=== PATIENT | female | born 1985 | race Caucasian/White ===

== ENCOUNTER 2024-01-04 10:16 | Observation (INO) ==
[2024-01-04 12:37] LABS: ABS Basophils 0.1 10^3/uL (0.0-0.1); ABS Lymphocytes 1.3 10^3/uL (1.0-4.8); ABS Monocytes 0.4 10^3/uL (0.0-0.9); ABS Neutrophils 8.9 10^3/uL (1.5-7.6); ABS Nucleated RBC 0.01 10^3/ul; Eosinophil % 0.3 %; Hematocrit 36.8 % (35-45); Hemoglobin 12.1 g/dL (11.5-14.3); Lymphocyte % 11.9 %; Mean Corpuscular Hemoglobin 29.4 pg (27-33); Mean Corpuscular Hgb Conc 32.9 g/dL (31-36); Mean Corpuscular Volume 89.6 fL (80-97); Mean Platelet Volume 8.1 fL (7.5-11.2); Nucleated Red Blood Cells % 0.1 %/100WBC (0.0-0.8); Platelet Count 501 10^3/uL (150-450); Red Blood Count 4.11 10^6/uL (3.63-4.92); Red Cell Distribution Width 14.7 % (12-17); White Blood Count 10.7 10^3/uL (3.8-11.8)
[2024-01-04] MEDS: Lactated Ringers 1000 ml BAG 1,000 ML IV SCH ×2 (12:46→16:55)
[2024-01-04] MEDS: Ondansetron 4 mg VIAL 2 MG/ML 2 ml VIAL IV ONE (12:46)
[2024-01-04 13:13] LABS: HCG Pregnancy < 0.60 mIU/mL
[2024-01-04] MEDS: Hydrocortisone INJ 100 MG/2ML 2 ML VIAL IV ONE (13:14)
[2024-01-04 13:18] LABS: ALT 30 U/L (7-52); AST 22 U/L (13-39); Albumin 4.7 g/dL (3.2-5.2); Albumin/Globulin Ratio 1.7 (1-3); Alkaline Phosphatase 71 U/L (35-149); Anion Gap 13 mmol/L (2-16); Blood Urea Nitrogen 12 mg/dL (6-24); C Reactive Protein 11.82 mg/L (<8.01); CO2 Carbon Dioxide 29 mmol/L (22-32); Calcium 12.8 mg/dL (8.6-10.3); Chloride 98 mmol/L (101-111); Creatinine, Serum 0.96 mg/dL (0.51-0.95); Globulin 2.7 g/dL (2-4); Glucose 102 mg/dL (70-100); Lipase 49 U/L (11.0-82.0); Magnesium 1.6 mg/dL (1.9-2.7); Potassium 4.1 mmol/L (3.5-5.0); Sodium 140 mmol/L (135-145); Total Bilirubin 0.4 mg/dL (0.2-1.0); Total Protein 7.4 g/dL (6.4-8.9); eGFR CKD-EPI 76.7 (>60)
[2024-01-04 14:26] LABS: Urine Appearance Turbid; Urine Bilirubin Negative (Negative); Urine Blood Trace (Negative); Urine Color Light-Yellow; Urine Glucose Negative (Negative); Urine Ketones Negative (Negative); Urine Nitrite Negative (Negative); Urine Protein Negative (Negative); Urine Specific Gravity 1.008 (1.002-1.030); Urine Urobilinogen Negative (Negative)
[2024-01-04] MEDS: Enoxaparin 40 MG/0.4 ML SYR SUBCUT SCH (16:54)
[2024-01-04] MEDS ORDERED: Albuterol HFA INHALER 8 gm MDI INH PRN (17:19)
[2024-01-04] MEDS: Ondansetron 4 mg VIAL 2 MG/ML 2 ml VIAL IV PRN (18:50)
[2024-01-04] MEDS ORDERED: DULoxetine DR 30 mg CAP PO SCH (19:00)
[2024-01-04] MEDS: Hydrocortisone INJ 100 MG/2ML 2 ML VIAL IV SCH (19:41)
[2024-01-04 20:15] LABS: Calcium (PTH Intact) 12.8 mg/dL (8.6-10.3)
[2024-01-04] MEDS: DULoxetine DR 20 mg CAP PO SCH (20:24)
[2024-01-04] MEDS: DULoxetine DR 30 mg CAP PO SCH (20:24)
[2024-01-04 20:42] LABS: TSH Ultra Thyroid Stim Horm 3.11 mcIU/mL (0.34-5.60)
[2024-01-04] MEDS: Latanoprost 0.005% 2.5 ml BTL BOTH EYES SCH (22:49)
[2024-01-04] MEDS: BRINZOLAMID BOTH EYES SCH (22:49)
[2024-01-04] MEDS: BRIMONIDIN OPH BOTH EYES SCH (22:49)
[2024-01-05 01:19] LABS: Calcium 10.5 mg/dL (8.6-10.3); Creatinine, Serum 0.9 mg/dL (0.51-0.95); Magnesium 1.5 mg/dL (1.9-2.7); eGFR CKD-EPI 82.9 (>60)
[2024-01-05 06:32] LABS: ABS Lymphocytes 1.6 10^3/uL (1.0-4.8); ABS Monocytes 0.7 10^3/uL (0.0-0.9); ABS Neutrophils 7.4 10^3/uL (1.5-7.6); ABS Nucleated RBC 0.01 10^3/ul; Hemoglobin 10.5 g/dL (11.5-14.3); Lymphocyte % 16.4 %; Mean Corpuscular Hemoglobin 30.2 pg (27-33); Mean Corpuscular Hgb Conc 33.9 g/dL (31-36); Mean Corpuscular Volume 89.3 fL (80-97); Mean Platelet Volume 8.4 fL (7.5-11.2); Nucleated Red Blood Cells % 0.1 %/100WBC (0.0-0.8); Platelet Count 396 10^3/uL (150-450); Red Blood Count 3.47 10^6/uL (3.63-4.92); Red Cell Distribution Width 14.7 % (12-17); White Blood Count 9.7 10^3/uL (3.8-11.8)
[2024-01-05] MEDS: SPIRIVA Respimat (tiotropium) 2.5 mcg/inh Inhaler INH SCH (07:20)
[2024-01-05 07:58] LABS: Albumin 3.8 g/dL (3.2-5.2); Albumin/Globulin Ratio 1.6 (1-3); Calcium 9.8 mg/dL (8.6-10.3); Creatinine, Serum 0.83 mg/dL (0.51-0.95); Globulin 2.4 g/dL (2-4); Magnesium 1.6 mg/dL (1.9-2.7); Total Bilirubin 0.4 mg/dL (0.2-1.0); Total Protein 6.2 g/dL (6.4-8.9); eGFR CKD-EPI 91.3 (>60)
[2024-01-05] MEDS: Magnesium Sulfate 2 gm BAG 2 GM/50 ML BAG IVPB ONE (08:52)
[2024-01-05] MEDS: Magnesium Sulfate IV 1GM/100ML 1 GM/100 ML BAG IV ONE (12:01)
[2024-01-05] MEDS: Hydrocortisone INJ 100 MG/2ML 2 ML VIAL IV SCH (14:28)
[2024-01-06] MEDS: Calcium Carb (TUMS) 500 mg CHEW TAB PO PRN (03:44)
[2024-01-06 06:14] LABS: ABS Basophils 0.1 10^3/uL (0.0-0.1); ABS Lymphocytes 1.9 10^3/uL (1.0-4.8); ABS Nucleated RBC 0.01 10^3/ul; Eosinophil % 0.3 %; Hematocrit 28.9 % (35-45); Hemoglobin 9.8 g/dL (11.5-14.3); Lymphocyte % 21.3 %; Mean Corpuscular Hemoglobin 30.3 pg (27-33); Mean Corpuscular Hgb Conc 33.7 g/dL (31-36); Mean Platelet Volume 8.1 fL (7.5-11.2); Nucleated Red Blood Cells % 0.1 %/100WBC (0.0-0.8); Platelet Count 346 10^3/uL (150-450); Red Blood Count 3.22 10^6/uL (3.63-4.92); Red Cell Distribution Width 14.3 % (12-17); White Blood Count 8.9 10^3/uL (3.8-11.8)
[2024-01-06 06:55] LABS: Calcium 8.7 mg/dL (8.6-10.3); Creatinine, Serum 0.73 mg/dL (0.51-0.95); Magnesium 1.9 mg/dL (1.9-2.7); Potassium 3.7 mmol/L (3.5-5.0); eGFR CKD-EPI 106.6 (>60)
[2024-01-06 14:43] VITALS: BP 145/83
== END 2024-01-06 17:00 | disposition home or self-care (01) ==
LOC: EDHOLD 10:16 → ED 10:16 → MED 20:22
PROVIDERS: ADMIT Hospitalist; ATTEND Hospitalist